=== PATIENT | female | born 1980 | race Caucasian/White ===

== ENCOUNTER → 2018-05-18 | Outpatient (CLI) | payer OTHER ==
--- NOTE | 2018-05-18 17:22 | KCIC ---
Examination: HAND BILAT 3V History: Polyarthralgia, new diagnosis of rheumatoid arthritis Comparison/Correlation: None Findings: 3 view right hand and 3 view left hand x-ray examinations were performed. No acute fracture or bone destruction. Soft tissues are unremarkable. No degenerative change. Impression: Normal bilateral hand x-ray exam. Electronically signed by: Aman Coppola MD (05/18/2018 5:19 PM) [facility]
== END | disposition home or self-care (01) ==
LOC: KCIC 11:09
PROVIDERS: ATTEND Internal Medicine Rheumatology
DX: M25.542 Pain in joints of left hand (principal); M25.541 Pain in joints of right hand
CPT/HCPCS: 73130